=== PATIENT | female | born 1935 | race Caucasian/White ===

== ENCOUNTER 2018-05-08 17:43 | Inpatient (IN) | payer MEDICARE ==
[~2018-05-08] VITALS: Ht 162.6 cm; Wt 46.0 kg
[~2018-05-08 17:43] MED LIST: ASPI81CH; ASPI81CH PO; B-122500 MCG SL; CALCAVITD PO; CENTRUM SILVER1 EAC2 PO; CHOL10002 PO; Cleocin HCl300 MG PO; Cyclobenzaprine5 MG PO; DEXA4 PO; ERGO400 PO; FOLI400 PO; HYDR1TAB94 PO; IBUP400 PO; LEVO750 PO; MULVITMINE PO; Norco 5-325 Ta1 EACH PO; ONDA8 PO; Prilosec Otc20 MG PO; RANI150 PO; RXCLIN PO; SIMV10 PO; SIMV40; Zofran Odt4 MG PO
[2018-05-08 18:48] LABS: BASOPHILS ABSOLUTE AUTO 0.06 K/mm3 (0.00-0.23); BASOPHILS PERCENT AUTO 0 % (0-2); EOSINOPHILS ABSOLUTE AUTO 0.01 K/mm3 (0.00-0.68); EOSINOPHILS PERCENT AUTO 0 % (0-6); Hematocrit 43.5 % (33.0-51.0); Hemoglobin 14.7 g/dL (11.5-16.0); IMMATURE GRAN ABSOLUTE AUTO 0.27 K/mm3 (0.00-0.10); IMMATURE GRAN PERCENT AUTO 1 % (0-1); LYMPHOCYTES ABSOLUTE AUTO 1.48 K/mm3 (0.84-5.20); LYMPHOCYTES PERCENT AUTO 5 % (21-46); MONOCYTES ABSOLUTE AUTO 1.01 K/mm3 (0.16-1.47); MONOCYTES PERCENT AUTO 4 % (4-13); Mean Corpuscular HGB 30.8 pg (26.0-34.0); Mean Corpuscular HGB Conc 33.8 g/dL (31.5-36.5); Mean Corpuscular Volume 91 fL (80-100); Mean Platelet Volume 10.2 fL (9.1-12.4); NEUTROPHILS ABSOLUTE AUTO 25.67 K/mm3 (1.96-9.15); NEUTROPHILS PERCENT AUTO 90 % (41-73); Platelet Count 203 K/mm3 (150-400); RDW Coefficient Variation 13.9 % (11.7-14.2); RDW Standard Deviation 46.5 fL (35.1-46.3); Red Blood Cell Count 4.77 M/mm3 (3.80-5.20)
[2018-05-08 19:11] LABS: Alanine Aminotransfer (ALT/SGP 52 U/L (12-78); Albumin, Blood 2.9 g/dL (3.4-5.0); Albumin/Globulin Ratio 0.9 (0.8-1.8); Alk Phos 78 U/L (50-136); Anion Gap 8 mmol/L (6-16); Aspartate Aminotrans (AST/SGOT 33 U/L (12-37); Bilirubin, Total 1.7 mg/dL (0.1-1.0); Blood Urea Nitrogen 21 mg/dL (8-24); Bun/Creatinine Ratio 28.3 (12.0-20.0); CO2, Blood 27 mmol/L (21-32); Calcium, Blood 8.5 mg/dL (8.5-10.1); Chloride, Blood 97 mmol/L (98-108); Creatinine, Blood 0.74 mg/dL (0.40-1.00); Globulin, Blood 3.1 g/dL (2.2-4.0); Glomerular Filtration Rate >60 (60-); Glucose, Blood 82 mg/dL (70-99); Potassium, Blood 3.1 mmol/L (3.5-5.5); Sodium, Blood 132 mmol/L (136-145); Troponin I 0.036 ng/mL (0.000-0.040)
[2018-05-08] MEDS ORDERED: TARCEVA PO (20:56)
[2018-05-08] MEDS ORDERED: DEXA4 PO (20:56)
[2018-05-08 22:54] LABS: Source, Urine Catheter
[2018-05-08 23:00] LABS: Bilirubin, Urine Neg (Neg); Blood, Urine 3+ (Neg); Glucose Qualitative, Urine Neg (Neg); Ketones, Urine Neg (Neg); Leukocyte Esterase, Urine 3+ (Neg); Nitrite, Urine Neg (Neg); Protein, Urine 1+ (Neg); Specific Gravity, Urine 1.015 (1.003-1.022); Urobilinogen, Urine 2+ (Normal); pH, Urine 6.5 (5.0-8.0)
[2018-05-08 23:01] LABS: Appearance, Urine Hazy (Clear); Color, Urine Yellow (P-Yellow)
[2018-05-08 23:08] LABS: Bacteria Many /hpf; Red Blood Cells, Urine Rare /hpf (0-2); Squamous Epithelial Cells Not Seen /hpf (Few)
--- NOTE | 2018-05-09 04:00 | NUR ---
FLU SHOT WAS DECLINED BY THE PSTIENT AND HER FAMILY BECAUSE SHE IS IMMUNOCOMPROMISED AFTER HER CANCER AND TREATMENTS THIS YEAR. THE FAMILY SAID THE ONCIOLOGIST RECOMMENDS THEY DECLINE AT THIS TIME.
--- NOTE | 2018-05-09 05:06 | NUR ---
Spoke to hospitalist regarding pain coverage for this patient, and received orders per emar.
[2018-05-09 07:56] LABS: BASOPHILS ABSOLUTE AUTO 0.02 K/mm3 (0.00-0.23); BASOPHILS PERCENT AUTO 0 % (0-2); EOSINOPHILS ABSOLUTE AUTO 0.12 K/mm3 (0.00-0.68); EOSINOPHILS PERCENT AUTO 1 % (0-6); Hematocrit 37.4 % (33.0-51.0); Hemoglobin 12.5 g/dL (11.5-16.0); IMMATURE GRAN PERCENT AUTO 1 % (0-1); LYMPHOCYTES ABSOLUTE AUTO 1.09 K/mm3 (0.84-5.20); LYMPHOCYTES PERCENT AUTO 5 % (21-46); MONOCYTES ABSOLUTE AUTO 0.65 K/mm3 (0.16-1.47); MONOCYTES PERCENT AUTO 3 % (4-13); Mean Corpuscular HGB 30.2 pg (26.0-34.0); Mean Corpuscular HGB Conc 33.4 g/dL (31.5-36.5); Mean Corpuscular Volume 90 fL (80-100); NEUTROPHILS PERCENT AUTO 90 % (41-73); Platelet Count 165 K/mm3 (150-400); RDW Coefficient Variation 14.2 % (11.7-14.2); RDW Standard Deviation 46.7 fL (35.1-46.3); Red Blood Cell Count 4.14 M/mm3 (3.80-5.20); White Blood Cell Count 20.58 K/mm3 (4.00-11.30)
[2018-05-09 08:18] LABS: Anion Gap 8 mmol/L (6-16); Blood Urea Nitrogen 18 mg/dL (8-24); Bun/Creatinine Ratio 29.4 (12.0-20.0); CO2, Blood 24 mmol/L (21-32); Calcium, Blood 7.8 mg/dL (8.5-10.1); Chloride, Blood 105 mmol/L (98-108); Creatinine, Blood 0.61 mg/dL (0.40-1.00); Glomerular Filtration Rate >60 (60-); Glucose, Blood 86 mg/dL (70-99); Potassium, Blood 2.9 mmol/L (3.5-5.5); Sodium, Blood 137 mmol/L (136-145)
[2018-05-09 08:33] LABS: Adenovirus Not Detected (NOT DETECT); Bordetella pertussis Not Detected (NOT DETECT); Chlamydophila pneumoniae Not Detected (NOT DETECT); Coronavirus 229E Not Detected (NOT DETECT); Coronavirus HKU1 Not Detected (NOT DETECT); Coronavirus NL63 Not Detected (NOT DETECT); Coronavirus OC43 Not Detected (NOT DETECT); Human Metapneumovirus Not Detected (NOT DETECT); Human Rhinovirus/Enterovirus Not Detected (NOT DETECT); Influenza A Not Detected (NOT DETECT); Influenza A/2009-H1 Not Detected (NOT DETECT); Influenza A/H1 Not Detected (NOT DETECT); Influenza A/H3 Not Detected (NOT DETECT); Influenza B Not Detected (NOT DETECT); Mycoplasma pneumoniae Not Detected (NOT DETECT); Parainfluenza Virus 1 Not Detected (NOT DETECT); Parainfluenza Virus 2 Not Detected (NOT DETECT); Parainfluenza Virus 3 Not Detected (NOT DETECT); Parainfluenza Virus 4 Not Detected (NOT DETECT); Respiratory Syncytial Virus Not Detected (NOT DETECT)
--- NOTE | 2018-05-09 18:24 | NUR ---
SUMM- PT ALERT TO SELF AND FAMILY. Q[place]ALANGIN BUT FOLLOWS DIRECTIONS WITH LOUD CUING. TOLERATING GENERAL DIET WITH ASSIST. HAS GOTTEN UP TO CHAIR FOR MEALS. AMBULATED ONCE IN [place] WITH FAMILY THIS PM. POTASSIUM REPLACED PO ORDER FOR KCL 40MEQ, FOR KCL 2.9 THIS AM. PT'S FAMILY DIRECTS PT CARE AND INSISTS ON PERFORMING ADL'S. PT HAD L RIBCAGE PAIN ONCE FOR ABOUT 30 MIN, MEDICATED WITH FENT WITH RELIEF. RECEIVED POLST AND UPDATED CODE STATUS PER DR MERAZ.
[2018-05-10 04:58] LABS: BASOPHILS ABSOLUTE AUTO 0.02 K/mm3 (0.00-0.23); BASOPHILS PERCENT AUTO 0 % (0-2); EOSINOPHILS ABSOLUTE AUTO 0.22 K/mm3 (0.00-0.68); EOSINOPHILS PERCENT AUTO 2 % (0-6); Hemoglobin 11.2 g/dL (11.5-16.0); IMMATURE GRAN ABSOLUTE AUTO 0.05 K/mm3 (0.00-0.10); IMMATURE GRAN PERCENT AUTO 1 % (0-1); LYMPHOCYTES ABSOLUTE AUTO 0.89 K/mm3 (0.84-5.20); LYMPHOCYTES PERCENT AUTO 9 % (21-46); MONOCYTES ABSOLUTE AUTO 0.27 K/mm3 (0.16-1.47); MONOCYTES PERCENT AUTO 3 % (4-13); Mean Corpuscular HGB 30.1 pg (26.0-34.0); Mean Corpuscular HGB Conc 32.9 g/dL (31.5-36.5); Mean Corpuscular Volume 91 fL (80-100); Mean Platelet Volume 10.9 fL (9.1-12.4); NEUTROPHILS ABSOLUTE AUTO 8.22 K/mm3 (1.96-9.15); NEUTROPHILS PERCENT AUTO 85 % (41-73); Platelet Count 165 K/mm3 (150-400); RDW Coefficient Variation 14.6 % (11.7-14.2); RDW Standard Deviation 48.7 fL (35.1-46.3); Red Blood Cell Count 3.72 M/mm3 (3.80-5.20); White Blood Cell Count 9.67 K/mm3 (4.00-11.30)
[2018-05-10 05:24] LABS: Anion Gap 9 mmol/L (6-16); Blood Urea Nitrogen 13 mg/dL (8-24); Bun/Creatinine Ratio 22.1 (12.0-20.0); CO2, Blood 21 mmol/L (21-32); Calcium, Blood 7.7 mg/dL (8.5-10.1); Chloride, Blood 110 mmol/L (98-108); Creatinine, Blood 0.59 mg/dL (0.40-1.00); Glomerular Filtration Rate >60 (60-); Glucose, Blood 75 mg/dL (70-99); Potassium, Blood 3.2 mmol/L (3.5-5.5); Sodium, Blood 140 mmol/L (136-145)
--- NOTE | 2018-05-10 07:52 | NUR ---
Rn summary: Patient is alert and oriented to self and family. Did know birthday but thinks she is at home at times. Patient does ambulate with assist and coaching to BR. Voiding QS. Patient did rest well. Daughter at bedside all shift and she is very helpful. Pt was up this am and in chair at 0600 eating a pre-breakfast. Telemetry shows SR rate in 70's. Lungs sl course left lobes. Pt is [place]. Pt is back to bed at this time and is tired after being up. Call light in reach. Report to day RN given.
[2018-05-10] MEDS ORDERED: ACET325 (09:31)
[2018-05-10] MEDS ORDERED: ALBU90OI INH (09:32)
[2018-05-10] MEDS ORDERED: BENZ100A PO (09:32)
[2018-05-10] MEDS ORDERED: CEFP200 PO (09:33)
[2018-05-10] MEDS ORDERED: ONDA4ODT MM ×2 (09:34→09:35)
[2018-05-10] MEDS ORDERED: POTA10T PO (09:38)
[2018-05-10] MEDS ORDERED: AZIT500 PO (09:39)
--- NOTE | 2018-05-10 13:46 | NUR ---
D/C INSTRUCTIONS PROVIDED TO PT AND PT'S SON AND DAUGHTER. IV REMOVED. MEDS FAXED TO [facility]. PT D/C VIA WHEELCHAIR WITH [facility] AND PT'S SON AND PT'S DAUGHTER.
== END 2018-05-10 13:43 | disposition home or self-care (01) | DRG 871 ==
LOC: ER 17:43 → MEDS 23:32 → ENPENDDIS 05-10 09:30 → MEDS 05-10 13:43
PROVIDERS: Emergency Medicine; Family Medicine; Nurse Practitioner Acute Care; Physician Assistant; ADMIT Internal Medicine
DX: A40.3 Sepsis due to Streptococcus pneumoniae (principal); J18.9 Pneumonia, unspecified organism; G92 Toxic encephalopathy; N39.0 Urinary tract infection, site not specified; C34.11 Malignant neoplasm of upper lobe, right bronchus or lung; E87.1 Hypo-osmolality and hyponatremia; F03.90 Unspecified dementia, unspecified severity, without behavioral disturbance, psychotic disturbance, mood disturbance, and anxiety; E78.5 Hyperlipidemia, unspecified; E87.6 Hypokalemia; K21.9 Gastro-esophageal reflux disease without esophagitis; Z66 Do not resuscitate; E87.8 Other disorders of electrolyte and fluid balance, not elsewhere classified; F17.210 Nicotine dependence, cigarettes, uncomplicated; Z88.5 Allergy status to narcotic agent; Z88.0 Allergy status to penicillin; Z92.21 Personal history of antineoplastic chemotherapy; Z92.3 Personal history of irradiation
CPT/HCPCS: 36415; 71046; 80048; 80053; 81001; 83605; 83735; 84145; 84484; 85025; 87077; 87086; 87186; 87449; 87486; 87581; 87633; 87798; 90686; 93005; 93010; 96365; 96367; 99285-25; J0456; J0696; J1650; J3010; J7030; J7050

== ENCOUNTER 2018-05-13 12:04 | Inpatient (IN) | payer MEDICARE ==
[~2018-05-13] VITALS: Ht 162.6 cm; Wt 52.7 kg
[~2018-05-13 12:04] MED LIST changes: +ACET325; +ALBU90OI INH; +AZIT500 PO; +BENZ100A PO; +CEFP200 PO; +ONDA4ODT MM; +POTA10T PO; +TARCEVA PO
[2018-05-13 13:02] LABS: BASOPHILS ABSOLUTE AUTO 0.04 K/mm3 (0.00-0.23); BASOPHILS PERCENT AUTO 1 % (0-2); EOSINOPHILS ABSOLUTE AUTO 0.04 K/mm3 (0.00-0.68); EOSINOPHILS PERCENT AUTO 1 % (0-6); Hematocrit 50.2 % (33.0-51.0); Hemoglobin 16.7 g/dL (11.5-16.0); IMMATURE GRAN ABSOLUTE AUTO 0.07 K/mm3 (0.00-0.10); IMMATURE GRAN PERCENT AUTO 1 % (0-1); LYMPHOCYTES ABSOLUTE AUTO 0.58 K/mm3 (0.84-5.20); LYMPHOCYTES PERCENT AUTO 7 % (21-46); MONOCYTES ABSOLUTE AUTO 0.21 K/mm3 (0.16-1.47); MONOCYTES PERCENT AUTO 3 % (4-13); Mean Corpuscular HGB 29.9 pg (26.0-34.0); Mean Corpuscular HGB Conc 33.3 g/dL (31.5-36.5); Mean Corpuscular Volume 90 fL (80-100); Mean Platelet Volume 10.5 fL (9.1-12.4); NEUTROPHILS ABSOLUTE AUTO 7.33 K/mm3 (1.96-9.15); NEUTROPHILS PERCENT AUTO 89 % (41-73); Platelet Count 207 K/mm3 (150-400); RDW Coefficient Variation 13.8 % (11.7-14.2); Red Blood Cell Count 5.58 M/mm3 (3.80-5.20); White Blood Cell Count 8.27 K/mm3 (4.00-11.30)
[2018-05-13 13:26] LABS: Alanine Aminotransfer (ALT/SGP 54 U/L (12-78); Albumin, Blood 3.4 g/dL (3.4-5.0); Albumin/Globulin Ratio 0.7 (0.8-1.8); Alk Phos 112 U/L (50-136); Anion Gap 13 mmol/L (6-16); Aspartate Aminotrans (AST/SGOT 46 U/L (12-37); Bilirubin, Total 2.1 mg/dL (0.1-1.0); Blood Urea Nitrogen 11 mg/dL (8-24); Bun/Creatinine Ratio 14.8 (12.0-20.0); CO2, Blood 25 mmol/L (21-32); Calcium, Blood 9.2 mg/dL (8.5-10.1); Chloride, Blood 91 mmol/L (98-108); Creatinine, Blood 0.74 mg/dL (0.40-1.00); Globulin, Blood 4.6 g/dL (2.2-4.0); Glomerular Filtration Rate >60 (60-); Glucose, Blood 59 mg/dL (70-99); Potassium, Blood 3.1 mmol/L (3.5-5.5); Sodium, Blood 129 mmol/L (136-145); Troponin I 0.041 ng/mL (0.000-0.040)
[2018-05-13 19:08] LABS: International Normalized Ratio 1.05; Prothrombin Time Results 11.1 Sec (9.7-11.5)
--- NOTE | 2018-05-13 19:26 | NUR ---
Initial Visit: Palliative Care Consult for goals of care. Pt resting in bed and appears comfortable. She is pleasantly confused and A&Ox2. Pt denies pain and dyspnea at this time. Family is at bedside including Pt's daughter in law Maicol (JOAN), and Pt's sons. Engaged in therapeutic conversation about goals of care. Maicol reports the Pt does not have any religous beliefs. Pt lives at home with Maicol and is the primary caregiver. Listened as Maicol expressed concerns about the level of care the Pt requires. Maicol reports that she will need assistance and is interested in caregivers coming into the home. Maicol also reports that discussion was made with Dr Hill about hospice and she is leaning towards this option. Maicol states that she would like to have a discussion with all the Pt's sons regarding this option and would like them to help her make the decision. For now Maicol would like Pt treated and stabilized. She would like Pt's code status to remain as the POLST states. POLST states CPR, Limited Treatment and No Aritificial Nutrition by Tube. Spoke with Pt's ED nurse Popeye and she is agreeable with plan. Popeye reports no concerns at this time. Plan: Placed social service consult for assistance with caregivers to come to home. Will remain available for therapeutic visits.
[2018-05-13 23:03] LABS: Adenovirus Not Detected (NOT DETECT); Coronavirus 229E Not Detected (NOT DETECT); Coronavirus HKU1 Not Detected (NOT DETECT); Coronavirus NL63 Not Detected (NOT DETECT); Coronavirus OC43 Not Detected (NOT DETECT); Human Metapneumovirus Not Detected (NOT DETECT); Human Rhinovirus/Enterovirus Not Detected (NOT DETECT); Influenza A Detected (NOT DETECT); Influenza A/2009-H1 Not Detected (NOT DETECT); Influenza A/H1 Not Detected (NOT DETECT); Influenza A/H3 Detected (NOT DETECT); Influenza B Not Detected (NOT DETECT); Parainfluenza Virus 1 Not Detected (NOT DETECT); Parainfluenza Virus 2 Not Detected (NOT DETECT); Parainfluenza Virus 3 Not Detected (NOT DETECT); Parainfluenza Virus 4 Not Detected (NOT DETECT)
[2018-05-13 23:04] LABS: Bordetella pertussis Not Detected (NOT DETECT); Chlamydophila pneumoniae Not Detected (NOT DETECT); Mycoplasma pneumoniae Not Detected (NOT DETECT); Respiratory Syncytial Virus Not Detected (NOT DETECT)
[2018-05-14 01:11] LABS: BASOPHILS ABSOLUTE AUTO 0.02 K/mm3 (0.00-0.23); BASOPHILS PERCENT AUTO 0 % (0-2); EOSINOPHILS ABSOLUTE AUTO 0.07 K/mm3 (0.00-0.68); EOSINOPHILS PERCENT AUTO 1 % (0-6); Hemoglobin 13.3 g/dL (11.5-16.0); IMMATURE GRAN ABSOLUTE AUTO 0.06 K/mm3 (0.00-0.10); IMMATURE GRAN PERCENT AUTO 1 % (0-1); LYMPHOCYTES ABSOLUTE AUTO 0.67 K/mm3 (0.84-5.20); LYMPHOCYTES PERCENT AUTO 11 % (21-46); MONOCYTES ABSOLUTE AUTO 0.24 K/mm3 (0.16-1.47); MONOCYTES PERCENT AUTO 4 % (4-13); Mean Corpuscular HGB 30.4 pg (26.0-34.0); Mean Corpuscular HGB Conc 33.3 g/dL (31.5-36.5); Mean Corpuscular Volume 92 fL (80-100); Mean Platelet Volume 10.4 fL (9.1-12.4); NEUTROPHILS ABSOLUTE AUTO 5.17 K/mm3 (1.96-9.15); NEUTROPHILS PERCENT AUTO 83 % (41-73); Platelet Count 152 K/mm3 (150-400); RDW Coefficient Variation 13.7 % (11.7-14.2); RDW Standard Deviation 46.7 fL (35.1-46.3); Red Blood Cell Count 4.37 M/mm3 (3.80-5.20); White Blood Cell Count 6.23 K/mm3 (4.00-11.30)
[2018-05-14 01:48] LABS: Alanine Aminotransfer (ALT/SGP 36 U/L (12-78); Albumin, Blood 2.3 g/dL (3.4-5.0); Albumin/Globulin Ratio 0.7 (0.8-1.8); Alk Phos 72 U/L (50-136); Anion Gap 9 mmol/L (6-16); Aspartate Aminotrans (AST/SGOT 39 U/L (12-37); Bilirubin, Total 1.1 mg/dL (0.1-1.0); Blood Urea Nitrogen 11 mg/dL (8-24); Bun/Creatinine Ratio 19.1 (12.0-20.0); CO2, Blood 25 mmol/L (21-32); Chloride, Blood 100 mmol/L (98-108); Creatinine, Blood 0.58 mg/dL (0.40-1.00); Globulin, Blood 3.1 g/dL (2.2-4.0); Glomerular Filtration Rate >60 (60-); Glucose, Blood 68 mg/dL (70-99); Potassium, Blood 3.7 mmol/L (3.5-5.5); Sodium, Blood 134 mmol/L (136-145)
[2018-05-14 01:59] LABS: Total Protein, Blood 5.4 g/dL (6.4-8.2)
--- NOTE | 2018-05-14 06:21 | NUR ---
SHIFT SUMMARY PT WAS A NEW ADMIT DURING THE NIGHT, ARRIVING ON THE FLOOR AT 1947. SHE WAS ADMITTED FOR SEPSIS. THE PT WAS FOUND TO BE POSITIVE FOR INFLUENZA A DURING THE NIGHT, AND PLACED IN DROPLET/CONTACT PRECAUTIONS. THE PT DID NOT REPORT ANY PAIN, NAUSEA OR SOB, SIMPLY REPEATING "I'M COLD". SHE WAS PLACED ON 2L OF O2 VIA NC, SHE WAS DESATTING TO THE 80S ON ROOM AIR WHILE IN THE ER. PT'S DAUGHTER STAYED IN THE ROOM THROUGH THE NIGHT. VITAL SIGNS REMAINED STABLE. NO OTHER ACUTE CHANGES IN PT CONDITION NOTED. WILL CONTINUE TO MONITOR AND TREAT.
--- NOTE | 2018-05-14 16:36 | NUR ---
SHIFT SUMMARY- AXO TO SELF/FAMILY. DENIES PAIN. DENIES N/V. DENIES SOB. RESP E/U ON 2L O2 NC. NSR AT 71 PER PCU CRTS. FAMILY AT BEDSIDE AND HELPING WITH PT CARE. BEDREST AT THIS TIME. TURNS Q2H. NO OTHER SIGNIFICANT CHANGES THIS SHIFT.
[2018-05-15 05:23] LABS: BASOPHILS ABSOLUTE AUTO 0.02 K/mm3 (0.00-0.23); BASOPHILS PERCENT AUTO 1 % (0-2); EOSINOPHILS PERCENT AUTO 5 % (0-6); Hematocrit 36.9 % (33.0-51.0); Hemoglobin 12.3 g/dL (11.5-16.0); IMMATURE GRAN ABSOLUTE AUTO 0.04 K/mm3 (0.00-0.10); IMMATURE GRAN PERCENT AUTO 1 % (0-1); LYMPHOCYTES ABSOLUTE AUTO 0.77 K/mm3 (0.84-5.20); LYMPHOCYTES PERCENT AUTO 18 % (21-46); MONOCYTES ABSOLUTE AUTO 0.17 K/mm3 (0.16-1.47); MONOCYTES PERCENT AUTO 4 % (4-13); Mean Corpuscular HGB 29.9 pg (26.0-34.0); Mean Corpuscular HGB Conc 33.3 g/dL (31.5-36.5); Mean Corpuscular Volume 90 fL (80-100); Mean Platelet Volume 10.7 fL (9.1-12.4); NEUTROPHILS ABSOLUTE AUTO 3.08 K/mm3 (1.96-9.15); NEUTROPHILS PERCENT AUTO 72 % (41-73); Platelet Count 174 K/mm3 (150-400); RDW Coefficient Variation 13.7 % (11.7-14.2); RDW Standard Deviation 44.9 fL (35.1-46.3); Red Blood Cell Count 4.12 M/mm3 (3.80-5.20); White Blood Cell Count 4.28 K/mm3 (4.00-11.30)
[2018-05-15 05:48] LABS: Anion Gap 9 mmol/L (6-16); Blood Urea Nitrogen 9 mg/dL (8-24); Bun/Creatinine Ratio 16.6 (12.0-20.0); CO2, Blood 25 mmol/L (21-32); Calcium, Blood 7.5 mg/dL (8.5-10.1); Chloride, Blood 99 mmol/L (98-108); Creatinine, Blood 0.54 mg/dL (0.40-1.00); Glomerular Filtration Rate >60 (60-); Glucose, Blood 68 mg/dL (70-99); Sodium, Blood 133 mmol/L (136-145); Troponin I 0.055 ng/mL (0.000-0.040)
--- NOTE | 2018-05-15 05:50 | NUR ---
NOC SHIFT SUMMARY PT HAS DIMENTIA AND IS PLEASANT AND COOPERATIVE WITH CARE. FAMILY ARE IN ROOM WELL AND ARE ALSO HELPFULL WITH CARE. NO ACUTE CHANGES NOTED THIS NIGHT. PT APPEARS IN NO ACUTE DISTRESS. VS HAVE BEEN STABLE. WILL CONTINUE TO MONITOR.
--- NOTE | 2018-05-15 15:15 | NUR ---
FOLLOW UP PAL CARE VISIT. PT IN COMPLETELY DARKENED ROOM WITH APPROX 6-10 FAMILY MEMBERS IN HER ROOM AND AT THE DOORWAY. PT IN AND OUT OF SLEEP. SHE IS ABLE TO WAKE FOR BRIEF PERIODS. SHE IS VERY APACHE. WHEN ASSESSED SHE STATES SHE IS NOT HURTING. DIL/POA, JO DOESN'T FEEL PT CAN TELL SHE IS IN PAIN DUE TO DEMENTIA. JO EDUCATED ON MULTPLE NONVERBAL INDICATORS OF PAIN TO REPORT IF NOTED BY FAMILY IN THE ROOM. PT WEARING O2 AND APPEARS SLIGHTLY DYSPNIC AT REST AND SLIGHTLY ANXIOUS WHEN AWAKE. SPENT TIME CONFIRMING CHOSEN PLAN OF CARE WITH JO. AT THIS TIME THEY WANT PT TO BE A FULL CODE. JO FEELS PT IS IMPROVING AND SHE IS HOPEFUL THIS WILL CONTINUE. DISCUSSED CPR SPECIFICALLY AND THAT IT MAY SUCCESSFULLY RESTART HEART BUT WILL NOT TREAT PT'S OTHER MULIPLE COMORBIDITIES. JO VERBALIZED UNDERSTANDING. SHE IS SATISFIED WITH THE CURRENT ORDERS AND PLAN OF CARE AT THIS TIME. SHE CARED FOR PT'S THRU EOL CARE AND VERBALIZED PLAN TO SEEK OUT HOSPICE IF PT'S STATUS CHANGED AND SHE DECLINED OR DID NOT CONTINUE TO IMPROVE. REVIEWED VISIT WITH PT'S RN.
--- NOTE | 2018-05-15 19:05 | NUR ---
SHIFT SUMMARY PALLIATIVE CARE ASSESSED THE PATIENTA ND THE FAMILY. WILL CHECK FOR ANY CHANGES. PATIENT HAD IV POTASSIUM REPLACEMENT THERAPY.
[2018-05-15 19:16] LABS: Vancomycin, Trough 3.4 ug/mL (5.0-10.0)
[2018-05-16 05:07] LABS: BASOPHILS ABSOLUTE AUTO 0.02 K/mm3 (0.00-0.23); BASOPHILS PERCENT AUTO 1 % (0-2); EOSINOPHILS ABSOLUTE AUTO 0.31 K/mm3 (0.00-0.68); EOSINOPHILS PERCENT AUTO 7 % (0-6); Hematocrit 34.9 % (33.0-51.0); Hemoglobin 11.6 g/dL (11.5-16.0); IMMATURE GRAN ABSOLUTE AUTO 0.02 K/mm3 (0.00-0.10); IMMATURE GRAN PERCENT AUTO 1 % (0-1); LYMPHOCYTES ABSOLUTE AUTO 0.85 K/mm3 (0.84-5.20); LYMPHOCYTES PERCENT AUTO 20 % (21-46); MONOCYTES ABSOLUTE AUTO 0.18 K/mm3 (0.16-1.47); MONOCYTES PERCENT AUTO 4 % (4-13); Mean Corpuscular HGB 30.4 pg (26.0-34.0); Mean Corpuscular HGB Conc 33.2 g/dL (31.5-36.5); Mean Corpuscular Volume 91 fL (80-100); Mean Platelet Volume 10.4 fL (9.1-12.4); NEUTROPHILS ABSOLUTE AUTO 2.93 K/mm3 (1.96-9.15); NEUTROPHILS PERCENT AUTO 68 % (41-73); Platelet Count 176 K/mm3 (150-400); RDW Coefficient Variation 13.6 % (11.7-14.2); Red Blood Cell Count 3.82 M/mm3 (3.80-5.20); White Blood Cell Count 4.31 K/mm3 (4.00-11.30)
--- NOTE | 2018-05-16 05:55 | NUR ---
NOC SHIFT SUMMARY PT PLEASANT AND COOPERATIVE WITH CARE. GIVEN IV ABX THIS NIGHT. THE RASH ON AND AROUND HER JOSÉ AREA APPEARS TO BE SLIGHTLY IMPROVED. NO ACUTE CHANGES NOTED THIS NIGHT. WILL CONTINUE TO MONITOR.
[2018-05-16 06:00] LABS: Anion Gap 9 mmol/L (6-16); Blood Urea Nitrogen 8 mg/dL (8-24); Bun/Creatinine Ratio 15.8 (12.0-20.0); CO2, Blood 25 mmol/L (21-32); Calcium, Blood 7.4 mg/dL (8.5-10.1); Chloride, Blood 100 mmol/L (98-108); Creatinine, Blood 0.51 mg/dL (0.40-1.00); Glomerular Filtration Rate >60 (60-); Glucose, Blood 82 mg/dL (70-99); Potassium, Blood 3.1 mmol/L (3.5-5.5); Sodium, Blood 134 mmol/L (136-145)
--- NOTE | 2018-05-16 16:34 | NUR ---
SHIFT SUMMARY PT ADMITTED FOR SEPSIS SECONDARY TO PNEUMONIA/INFLUENZA A AND UTI. PT IS ON DROPLET PRECAUTIONS FOR INFLUENZA A. HX OF LUNG CANCER, SKIN CANCER, COPD, HTN, RECURRENT UTI'S, DEMENTIA. ONCOLOGY RECOMMENDS HOLDING TARCEVA AND DECADRON WHILE HOSPITALIZED. PT'S POTASSIUM LEVEL WAS 3.1 TODAY. PT DID NOT TOLERATE IV POTASSIUM WELL, DESCRIBED BURNING PAIN WHEN ATTEMPTED ADMIN. HOSPITALIST ORDERED ORAL POTASSIUM TO REPLACE. PT IS BEING MONITORED BY TELEMETRY AND WAS 84 BPM IN NSR. PT HAS NOT BEEN EATING WELL IN HOSPITAL, HOWEVER I WAS INFORMED THAT THE FAMILY SNUCK HER IN A "BIG MAC" HAMBURGER THAT SHE ATE WELL. FAMILY ASSISTS WITH THIS PT'S CARE AND IS USUALLY PRESENT IN THE ROOM. LR IS RUNNING IV 100 ML/HR ORDERED.
--- NOTE | 2018-05-16 18:00 | NUR ---
PT STATUS I HAVE JUST BEEN MADE AWARE BY [facility] STAFF THAT THE PT'S SKIN IS IRRITATED AROUND THE URETHRA AND BECOMING INFLAMED, ACCORDING TO THEM. I PLAN TO ASSESS IT MYSELF WITH THE NEXT BRIEF CHANGE. IF THIS DOES NOT OCCUR WITHIN THE NEXT 30 MINUTES (SHIFT CHANGE) I WILL PASS THIS INFORMATION ON TO THE ONCOMING RN, ASKING THE NURSE TO ASSESS THIS SITUATION WITH THEIR OWN NURSING JUDGEMENT. THE FAMILY IS NOT CONCERNED AND REPORTED TO ME THEIR OPINION THAT HER SKIN IS IMPROVED IN THE PERINEAL AREA WITH THE NEW CREAM THEY HAVE PROVIDED. I HAVE INFORMED THE [facility] TO PASS ALONG THIS INFORMATION TO THE NIGHT SOUND INSTALLATION WORKER WELL.
[2018-05-17 05:25] LABS: BASOPHILS ABSOLUTE AUTO 0.03 K/mm3 (0.00-0.23); BASOPHILS PERCENT AUTO 1 % (0-2); EOSINOPHILS ABSOLUTE AUTO 0.27 K/mm3 (0.00-0.68); EOSINOPHILS PERCENT AUTO 6 % (0-6); Hematocrit 34.3 % (33.0-51.0); Hemoglobin 11.6 g/dL (11.5-16.0); Mean Corpuscular HGB 30.1 pg (26.0-34.0); Mean Corpuscular HGB Conc 33.8 g/dL (31.5-36.5); Mean Corpuscular Volume 89 fL (80-100); Mean Platelet Volume 10.7 fL (9.1-12.4); Platelet Count 183 K/mm3 (150-400); RDW Coefficient Variation 13.4 % (11.7-14.2); RDW Standard Deviation 43.8 fL (35.1-46.3); Red Blood Cell Count 3.85 M/mm3 (3.80-5.20); White Blood Cell Count 4.46 K/mm3 (4.00-11.30)
[2018-05-17 05:29] LABS: IMMATURE GRAN ABSOLUTE AUTO 0.02 K/mm3 (0.00-0.10); IMMATURE GRAN PERCENT AUTO 0 % (0-1); LYMPHOCYTES ABSOLUTE AUTO 1.04 K/mm3 (0.84-5.20); LYMPHOCYTES PERCENT AUTO 23 % (21-46); MONOCYTES ABSOLUTE AUTO 0.22 K/mm3 (0.16-1.47); MONOCYTES PERCENT AUTO 5 % (4-13); NEUTROPHILS ABSOLUTE AUTO 2.88 K/mm3 (1.96-9.15); NEUTROPHILS PERCENT AUTO 65 % (41-73)
[2018-05-17 05:52] LABS: Anion Gap 7 mmol/L (6-16); Blood Urea Nitrogen 5 mg/dL (8-24); Bun/Creatinine Ratio 9.7 (12.0-20.0); CO2, Blood 26 mmol/L (21-32); Calcium, Blood 7.7 mg/dL (8.5-10.1); Chloride, Blood 100 mmol/L (98-108); Creatinine, Blood 0.52 mg/dL (0.40-1.00); Glomerular Filtration Rate >60 (60-); Glucose, Blood 70 mg/dL (70-99); Potassium, Blood 3.3 mmol/L (3.5-5.5); Sodium, Blood 133 mmol/L (136-145)
--- NOTE | 2018-05-17 19:30 | NUR ---
Assumed care of pt at 1930 after recieving report from off-going nurse.
--- NOTE | 2018-05-17 20:09 | NUR ---
SUMM- PT A/O TO SELF AND FAMILY. UP TO CHAIR FOR X2 TODAY WITH MAX 1 PIVOT TX WITH GAIT BELT, ABLE TO BEAR WEITHG, WEAK AND UNSTEADY, UNSURE OF STEP. INCONT AT TIMES AND CONTINENT OCCASIONAL. CALAZYME TO EXCORIATED GROIN. PTS FAMILY INVOLVED IN CARE AND ASSIST IN MEALS AND ACTIVITYS. DENIES PAIN. LUNGS CLEAR, DIM BASES. CONT WITH LR AT 100ML HR. REPORT TO KATELYNN ACKERMAN.
[2018-05-18 05:43] LABS: Source, Urine Catheter
[2018-05-18 05:44] LABS: Bilirubin, Urine Neg (Neg); Blood, Urine Neg (Neg); Glucose Qualitative, Urine Neg (Neg); Ketones, Urine Neg (Neg); Leukocyte Esterase, Urine 1+ (Neg); Nitrite, Urine Neg (Neg); Protein, Urine Neg (Neg); Urobilinogen, Urine NORM (Normal)
[2018-05-18 05:52] LABS: Appearance, Urine Clear (Clear); Bacteria Not Seen /hpf; Color, Urine Yellow (P-Yellow); Red Blood Cells, Urine Not Seen /hpf (0-2); Squamous Epithelial Cells Not Seen /hpf (Few); White Blood Cells, Urine 0-2 /hpf (0-5)
--- NOTE | 2018-05-18 06:22 | NUR ---
Shift summary: Pt very anxious about cares during the night. Pt very anxious about getting stuck with needles. Pt incontinent of urine several times during night but we were able to get urine sample which came back clean. Teletry on- sinus rhythm during the night. Pt remains on droplet precautions. Pt turned q 2 hours during the night. Sacral area excoriated. Calazine lotion applied.
[2018-05-18 07:34] LABS: Vancomycin, Trough 16.4 ug/mL (5.0-10.0)
[2018-05-18 07:37] LABS: Anion Gap 9 mmol/L (6-16); Blood Urea Nitrogen 5 mg/dL (8-24); Bun/Creatinine Ratio 9.2 (12.0-20.0); CO2, Blood 26 mmol/L (21-32); Calcium, Blood 7.8 mg/dL (8.5-10.1); Chloride, Blood 98 mmol/L (98-108); Creatinine, Blood 0.54 mg/dL (0.40-1.00); Glomerular Filtration Rate >60 (60-); Glucose, Blood 70 mg/dL (70-99); Potassium, Blood 3.2 mmol/L (3.5-5.5); Sodium, Blood 133 mmol/L (136-145)
--- NOTE | 2018-05-18 19:30 | NUR ---
Assumed care of pt at 1930 after recieving report from off-going nurse.
--- NOTE | 2018-05-18 19:48 | NUR ---
SHIFT SUMMARY PT HAS NOT HAD MUCH OF AN APPETITE THIS SHIFT. FAMILY BROUGHT PT FISH AND CHIPS IN TODAY AND PT WAS EATING IT. PT CONFUSED AND FORGETFUL THAT SHE HAS/HASN'T EATEN. PT UP WITH PHYSICAL THERAPY THIS SHIFT AND AMBULATED IN [place]. FAMILY HAD PT SITTING UP IN CHAIR FOR 40 MIN THIS EVENING PER FAMILY. PT VERY SLEEPY THROUGH OUT THE SHIFT. IVF STOPPED AND PLANS FOR DISCHARGE TOMORROW. FAMILY CONCERNED OF DEHYDRATION. THIS RN EXPLAINED TO FAMILY THAT STAFF WOULD ENCOURAGE PT TO DRINK FLUIDS AND INFORMED NIGHT RN WHAT PT'S FAVORITE THINGS WERE TO DRINK. NO ACUTE CHANGES THIS SHIFT. CALL LIGHT IN REACH. REPORT GIVEN TO KATELYNN RN.
--- NOTE | 2018-05-19 03:48 | NUR ---
shift summary. Pt did well overnight. Pt has been sleeping most of shift. Pt incontinent of urine / changed x 3 during the night. Pt has been more cooperative with cares during night. Pt repostioned q 2 hours during night. Sacral and barbara area excoriated. pt started on nystatin.
[2018-05-19 04:52] LABS: Hematocrit 37.6 % (33.0-51.0); Hemoglobin 12.7 g/dL (11.5-16.0); Mean Corpuscular HGB 30.3 pg (26.0-34.0); Mean Corpuscular HGB Conc 33.8 g/dL (31.5-36.5); Mean Corpuscular Volume 90 fL (80-100); Mean Platelet Volume 10.1 fL (9.1-12.4); Platelet Count 226 K/mm3 (150-400); RDW Coefficient Variation 13.2 % (11.7-14.2); RDW Standard Deviation 43.3 fL (35.1-46.3); Red Blood Cell Count 4.19 M/mm3 (3.80-5.20); White Blood Cell Count 6.33 K/mm3 (4.00-11.30)
[2018-05-19 05:16] LABS: Alanine Aminotransfer (ALT/SGP 22 U/L (12-78); Albumin, Blood 2.2 g/dL (3.4-5.0); Albumin/Globulin Ratio 0.7 (0.8-1.8); Alk Phos 64 U/L (50-136); Anion Gap 9 mmol/L (6-16); Aspartate Aminotrans (AST/SGOT 22 U/L (12-37); Bilirubin, Total 0.6 mg/dL (0.1-1.0); Blood Urea Nitrogen 7 mg/dL (8-24); Bun/Creatinine Ratio 12.1 (12.0-20.0); CO2, Blood 27 mmol/L (21-32); Calcium, Blood 8.5 mg/dL (8.5-10.1); Chloride, Blood 96 mmol/L (98-108); Creatinine, Blood 0.58 mg/dL (0.40-1.00); Globulin, Blood 3.3 g/dL (2.2-4.0); Glomerular Filtration Rate >60 (60-); Glucose, Blood 78 mg/dL (70-99); Potassium, Blood 3.5 mmol/L (3.5-5.5); Sodium, Blood 132 mmol/L (136-145); Total Protein, Blood 5.5 g/dL (6.4-8.2)
--- NOTE | 2018-05-19 10:54 | NUR ---
PATIENT REFUSING MEDICATIONS THIS MORNING. UNABLE TO REORIENT. DAUGHTER AT THE BEDSIDE.
--- NOTE | 2018-05-19 20:12 | NUR ---
SHIFT SUMMARY PATIENT A&O TO SELF AND FAMILY. HX DEMENTIA. DENIES PAIN OR SOB THIS SHIFT. REFUSING ALL PO MEDICATIONS. HAS NOT BEEN EATING OR DRINKING ALL SHIFT. DR. MALDONADOTRATE AWARE. DIETARY CONSULT PLACED. FAMILY AT THE BEDSIDE. UP IN CHAIR FOR BREAKFAST AND DINNER. REPOSITIONED Q2 HOURS. NO ACUTE CHANGES THIS SHIFT.
[2018-05-20 04:54] LABS: BASOPHILS ABSOLUTE AUTO 0.02 K/mm3 (0.00-0.23); BASOPHILS PERCENT AUTO 0 % (0-2); EOSINOPHILS ABSOLUTE AUTO 0.28 K/mm3 (0.00-0.68); EOSINOPHILS PERCENT AUTO 5 % (0-6); Hematocrit 34.2 % (33.0-51.0); Hemoglobin 11.6 g/dL (11.5-16.0); IMMATURE GRAN ABSOLUTE AUTO 0.07 K/mm3 (0.00-0.10); IMMATURE GRAN PERCENT AUTO 1 % (0-1); LYMPHOCYTES PERCENT AUTO 23 % (21-46); MONOCYTES ABSOLUTE AUTO 0.49 K/mm3 (0.16-1.47); MONOCYTES PERCENT AUTO 10 % (4-13); Mean Corpuscular HGB 29.8 pg (26.0-34.0); Mean Corpuscular HGB Conc 33.9 g/dL (31.5-36.5); Mean Corpuscular Volume 88 fL (80-100); Mean Platelet Volume 10.3 fL (9.1-12.4); NEUTROPHILS ABSOLUTE AUTO 3.11 K/mm3 (1.96-9.15); NEUTROPHILS PERCENT AUTO 60 % (41-73); Platelet Count 243 K/mm3 (150-400); RDW Coefficient Variation 13.2 % (11.7-14.2); RDW Standard Deviation 42.3 fL (35.1-46.3); Red Blood Cell Count 3.89 M/mm3 (3.80-5.20); White Blood Cell Count 5.17 K/mm3 (4.00-11.30)
[2018-05-20 05:15] LABS: Alanine Aminotransfer (ALT/SGP 21 U/L (12-78); Albumin, Blood 2.1 g/dL (3.4-5.0); Albumin/Globulin Ratio 0.6 (0.8-1.8); Alk Phos 62 U/L (50-136); Anion Gap 8 mmol/L (6-16); Aspartate Aminotrans (AST/SGOT 22 U/L (12-37); Bilirubin, Total 0.5 mg/dL (0.1-1.0); Blood Urea Nitrogen 11 mg/dL (8-24); Bun/Creatinine Ratio 22.8 (12.0-20.0); CO2, Blood 26 mmol/L (21-32); Calcium, Blood 8.1 mg/dL (8.5-10.1); Chloride, Blood 97 mmol/L (98-108); Creatinine, Blood 0.48 mg/dL (0.40-1.00); Globulin, Blood 3.3 g/dL (2.2-4.0); Glomerular Filtration Rate >60 (60-); Glucose, Blood 119 mg/dL (70-99); Magnesium, Blood 1.8 mg/dL (1.6-2.4); Potassium, Blood 3.6 mmol/L (3.5-5.5); Sodium, Blood 131 mmol/L (136-145); Total Protein, Blood 5.4 g/dL (6.4-8.2)
--- NOTE | 2018-05-20 06:42 | NUR ---
SHIFT SUMMARY PT ORIENTED TO SELF AND FAMILY. INCONT OF URINE BARRIER CREAM APPLIED TO JOSÉ AREA. REFUSED SCD'S. NO STOOL SAMPLE. SHE SLEPT THROUGH NIGHT. BED ALARM IN USE.
--- NOTE | 2018-05-20 19:03 | NUR ---
shift summary PATIENT IS GETTING UP TO CHAIR FOR MEALS. ENCOURAGING BETTER PO INTAKE. FAMILY AT BEDSIDE ENCOURAGING PATIENT TO EAT. 1 PERSON ASSIST TO AND FROM CHAIR. ATTENDS CHANGED PRN, [place]STAT[place] AND CREAM APPLIED. ENCOURAGING KEEPING ATTENDS DRY AND KEEPING BOTTOM ELEVATED. ENCOURAGING USING A BEDPAN OR BSC IF PATIENT HAS FEELING TO URINATE.
[2018-05-21 05:29] LABS: BASOPHILS ABSOLUTE AUTO 0.02 K/mm3 (0.00-0.23); BASOPHILS PERCENT AUTO 0 % (0-2); EOSINOPHILS ABSOLUTE AUTO 0.03 K/mm3 (0.00-0.68); EOSINOPHILS PERCENT AUTO 1 % (0-6); Hematocrit 33.3 % (33.0-51.0); Hemoglobin 11.2 g/dL (11.5-16.0); IMMATURE GRAN ABSOLUTE AUTO 0.08 K/mm3 (0.00-0.10); IMMATURE GRAN PERCENT AUTO 2 % (0-1); LYMPHOCYTES ABSOLUTE AUTO 1.27 K/mm3 (0.84-5.20); LYMPHOCYTES PERCENT AUTO 24 % (21-46); MONOCYTES ABSOLUTE AUTO 0.74 K/mm3 (0.16-1.47); MONOCYTES PERCENT AUTO 14 % (4-13); Mean Corpuscular HGB 29.6 pg (26.0-34.0); Mean Corpuscular HGB Conc 33.6 g/dL (31.5-36.5); Mean Corpuscular Volume 88 fL (80-100); Mean Platelet Volume 10.5 fL (9.1-12.4); NEUTROPHILS ABSOLUTE AUTO 3.14 K/mm3 (1.96-9.15); NEUTROPHILS PERCENT AUTO 59 % (41-73); Platelet Count 278 K/mm3 (150-400); RDW Coefficient Variation 13.3 % (11.7-14.2); Red Blood Cell Count 3.79 M/mm3 (3.80-5.20); White Blood Cell Count 5.28 K/mm3 (4.00-11.30)
[2018-05-21 05:55] LABS: Alanine Aminotransfer (ALT/SGP 21 U/L (12-78); Albumin, Blood 2.2 g/dL (3.4-5.0); Albumin/Globulin Ratio 0.7 (0.8-1.8); Alk Phos 60 U/L (50-136); Anion Gap 7 mmol/L (6-16); Aspartate Aminotrans (AST/SGOT 14 U/L (12-37); Bilirubin, Total 0.4 mg/dL (0.1-1.0); Blood Urea Nitrogen 13 mg/dL (8-24); Bun/Creatinine Ratio 24.4 (12.0-20.0); CO2, Blood 24 mmol/L (21-32); Calcium, Blood 8.2 mg/dL (8.5-10.1); Chloride, Blood 100 mmol/L (98-108); Creatinine, Blood 0.53 mg/dL (0.40-1.00); Globulin, Blood 3.3 g/dL (2.2-4.0); Glomerular Filtration Rate >60 (60-); Glucose, Blood 107 mg/dL (70-99); Potassium, Blood 4.2 mmol/L (3.5-5.5); Sodium, Blood 131 mmol/L (136-145); Total Protein, Blood 5.5 g/dL (6.4-8.2)
--- NOTE | 2018-05-21 06:08 | NUR ---
05/21/18 0550 REPOSITIONED TO OTHER SIDE AFTER CHANGING BRIEF OF URINE INCONTINENCE. RASH TO SACRAL AND JOSÉ- AREA CLEANSED AND SKIN BARRIOR POWDER APPLIED. PT WANTING TO GO BACK TO SLEEP. NO C/O PAIN OR OTHER S/S. FAMILY AT BEDSIDE.
--- NOTE | 2018-05-21 19:19 | NUR ---
SHIFT SUMMARY: NO ACUTE CHANGES TO REPORT THIS SHIFT. PT HX DEMENTIA; A & O x2; ORIENTED TO SELF AND FAMILY. PT UNCOOPERATIVE WITH CARE PROVIDED BY STAFF; COMPLIANT/COOPERATIVE WITH FAMILY CARE. PT UP c 1 ASSIST c FWW & GAIT BELT. NO C/O PAIN THIS SHIFT. IV ABX CONTINUING. REPORT GIVEN TO ONCOMING RN.
--- NOTE | 2018-05-22 04:45 | NUR ---
*SHIFT SUMMARY* PATIENT IS ALERT AND ORIENTED TO SELF AND FAMILY. PATIENT HAD JUST WENT FOR A WALK IN THE [place]ALLS WITH FAMILY AT BEGINING OF SHIFT AND WANTED TO TAKE A NAP. PATIENT ON ROOM AIR. NO COMPLAINTS OF PAIN. PT SLEPT MOST OF THE NIGHT. PT DID GET OUT OF BED AND WALKED TO [place] AND REQUESTED FOOD. PATIENT REDIRECTED BACK TO BED AND WAS PROVIDED A SNACK. BED ALARM SET. PATIENT FELL BACK ASLEEP AND HAS NOT ATTEMPTED TO GET OUT OF BED SINCE. CALL LIGHT WITHIN REACH, BED LOWERED AND LOCKED WITH ALARM ON. VITALS STABLE.
[2018-05-22 04:54] LABS: BASOPHILS ABSOLUTE AUTO 0.02 K/mm3 (0.00-0.23); BASOPHILS PERCENT AUTO 0 % (0-2); EOSINOPHILS ABSOLUTE AUTO 0.07 K/mm3 (0.00-0.68); EOSINOPHILS PERCENT AUTO 1 % (0-6); Hematocrit 35.3 % (33.0-51.0); Hemoglobin 12.1 g/dL (11.5-16.0); IMMATURE GRAN ABSOLUTE AUTO 0.16 K/mm3 (0.00-0.10); IMMATURE GRAN PERCENT AUTO 2 % (0-1); LYMPHOCYTES ABSOLUTE AUTO 1.79 K/mm3 (0.84-5.20); LYMPHOCYTES PERCENT AUTO 24 % (21-46); MONOCYTES ABSOLUTE AUTO 0.94 K/mm3 (0.16-1.47); MONOCYTES PERCENT AUTO 13 % (4-13); Mean Corpuscular HGB Conc 34.3 g/dL (31.5-36.5); Mean Corpuscular Volume 87 fL (80-100); Mean Platelet Volume 10.3 fL (9.1-12.4); NEUTROPHILS ABSOLUTE AUTO 4.54 K/mm3 (1.96-9.15); NEUTROPHILS PERCENT AUTO 60 % (41-73); Platelet Count 351 K/mm3 (150-400); RDW Coefficient Variation 13.2 % (11.7-14.2); RDW Standard Deviation 42.1 fL (35.1-46.3); Red Blood Cell Count 4.04 M/mm3 (3.80-5.20); White Blood Cell Count 7.52 K/mm3 (4.00-11.30)
[2018-05-22 05:20] LABS: Alanine Aminotransfer (ALT/SGP 24 U/L (12-78); Albumin, Blood 2.5 g/dL (3.4-5.0); Albumin/Globulin Ratio 0.8 (0.8-1.8); Alk Phos 64 U/L (50-136); Anion Gap 10 mmol/L (6-16); Aspartate Aminotrans (AST/SGOT 24 U/L (12-37); Bilirubin, Total 0.3 mg/dL (0.1-1.0); Blood Urea Nitrogen 12 mg/dL (8-24); Bun/Creatinine Ratio 20.7 (12.0-20.0); CO2, Blood 23 mmol/L (21-32); Calcium, Blood 8.6 mg/dL (8.5-10.1); Chloride, Blood 100 mmol/L (98-108); Creatinine, Blood 0.58 mg/dL (0.40-1.00); Globulin, Blood 3.3 g/dL (2.2-4.0); Glomerular Filtration Rate >60 (60-); Glucose, Blood 78 mg/dL (70-99); Potassium, Blood 4.3 mmol/L (3.5-5.5); Sodium, Blood 133 mmol/L (136-145); Total Protein, Blood 5.8 g/dL (6.4-8.2)
--- NOTE | 2018-05-22 16:19 | NUR ---
PT IS A/OX3, PLEASANT AND COOPERATIVE, THE PT IS UP WITH MINIMAL ASSIST TO THE CHAIR AND THE BSC, THE PT DENIED ANY PAIN T/O THE SHIFT, THE PT HAS POOR APPETITE AND AT ONLY SMALL PORTIONS OF HER MEALS T/O THE DAY, THE PTS DAUGHTER ASSISTED THE PT TODAY UP INTO THE CHAIR AND ALSO ASSISTED HER WITH HER LUNCH, THE PT APPEARS TO BE BREATHING EASILY ON RA AT THIS TIME, CALL LIGHT IN REACH, WILL CONTINUE TO MONITOR AND ASSESS FOR CHANGES
[2018-05-23 04:55] LABS: BASOPHILS ABSOLUTE AUTO 0.04 K/mm3 (0.00-0.23); BASOPHILS PERCENT AUTO 1 % (0-2); EOSINOPHILS ABSOLUTE AUTO 0.07 K/mm3 (0.00-0.68); EOSINOPHILS PERCENT AUTO 1 % (0-6); Hematocrit 35.9 % (33.0-51.0); Hemoglobin 11.9 g/dL (11.5-16.0); IMMATURE GRAN PERCENT AUTO 2 % (0-1); LYMPHOCYTES ABSOLUTE AUTO 1.68 K/mm3 (0.84-5.20); LYMPHOCYTES PERCENT AUTO 20 % (21-46); MONOCYTES ABSOLUTE AUTO 1.15 K/mm3 (0.16-1.47); MONOCYTES PERCENT AUTO 14 % (4-13); Mean Corpuscular HGB Conc 33.1 g/dL (31.5-36.5); Mean Platelet Volume 10.3 fL (9.1-12.4); NEUTROPHILS ABSOLUTE AUTO 5.32 K/mm3 (1.96-9.15); NEUTROPHILS PERCENT AUTO 63 % (41-73); Platelet Count 363 K/mm3 (150-400); RDW Coefficient Variation 13.4 % (11.7-14.2); RDW Standard Deviation 44.5 fL (35.1-46.3); Red Blood Cell Count 3.97 M/mm3 (3.80-5.20); White Blood Cell Count 8.46 K/mm3 (4.00-11.30)
[2018-05-23 05:05] LABS: Mean Corpuscular Volume 90 fL (80-100)
[2018-05-23 05:22] LABS: Alanine Aminotransfer (ALT/SGP 22 U/L (12-78); Albumin, Blood 2.5 g/dL (3.4-5.0); Albumin/Globulin Ratio 0.8 (0.8-1.8); Alk Phos 68 U/L (50-136); Anion Gap 9 mmol/L (6-16); Aspartate Aminotrans (AST/SGOT 19 U/L (12-37); Bilirubin, Total 0.4 mg/dL (0.1-1.0); Blood Urea Nitrogen 15 mg/dL (8-24); Bun/Creatinine Ratio 27.4 (12.0-20.0); CO2, Blood 23 mmol/L (21-32); Calcium, Blood 8.5 mg/dL (8.5-10.1); Chloride, Blood 102 mmol/L (98-108); Creatinine, Blood 0.55 mg/dL (0.40-1.00); Globulin, Blood 3.1 g/dL (2.2-4.0); Glomerular Filtration Rate >60 (60-); Glucose, Blood 84 mg/dL (70-99); Potassium, Blood 4.1 mmol/L (3.5-5.5); Sodium, Blood 134 mmol/L (136-145); Total Protein, Blood 5.6 g/dL (6.4-8.2)
[2018-05-23] MEDS ORDERED: GUAI600T33 PO (11:28)
[2018-05-23] MEDS ORDERED: LEVOFLOXACIN250 MG PO (11:30)
--- NOTE | 2018-05-23 12:54 | NUR ---
PT DISCHARGED PT AND FAMILY VEBALIZED UNDERSTANDING OF THE DISCHARGE INSTRUCTIONS, THE PTS PERSCRIPTIONS WERE FAXED TO [facility] REQUEST[facility], THE PT APPEARED TO BE BREATHING EASILY ON RA, THE PT WAS TRANSFERED VIA WHEELCHAIR ACCOMPANIED BY HER FAMILY AND THE WRAPPING MACHINE TENDER
== END 2018-05-23 12:02 | disposition home or self-care (01) | DRG 871 ==
LOC: ER 12:04 → ERHOLD 17:33 → MEDS 17:33 → ENPENDDIS 05-23 10:29 → MEDS 05-23 12:02
PROVIDERS: Emergency Medicine; Internal Medicine; ADMIT Family Medicine
DX: A41.9 Sepsis, unspecified organism (principal); J18.9 Pneumonia, unspecified organism; G92 Toxic encephalopathy; N39.0 Urinary tract infection, site not specified; E46 Unspecified protein-calorie malnutrition; C34.90 Malignant neoplasm of unspecified part of unspecified bronchus or lung; N13.30 Unspecified hydronephrosis; E87.1 Hypo-osmolality and hyponatremia; Z68.1 Body mass index [BMI] 19.9 or less, adult; B96.1 Klebsiella pneumoniae [K. pneumoniae] as the cause of diseases classified elsewhere; E87.6 Hypokalemia; J10.1 Influenza due to other identified influenza virus with other respiratory manifestations; K57.30 Diverticulosis of large intestine without perforation or abscess without bleeding; F03.90 Unspecified dementia, unspecified severity, without behavioral disturbance, psychotic disturbance, mood disturbance, and anxiety; E78.5 Hyperlipidemia, unspecified; E87.8 Other disorders of electrolyte and fluid balance, not elsewhere classified; E86.0 Dehydration; R19.7 Diarrhea, unspecified; F17.200 Nicotine dependence, unspecified, uncomplicated; Z66 Do not resuscitate; J44.9 Chronic obstructive pulmonary disease, unspecified; R07.9 Chest pain, unspecified; Z92.3 Personal history of irradiation; Z92.21 Personal history of antineoplastic chemotherapy; Z88.5 Allergy status to narcotic agent; Z88.0 Allergy status to penicillin; Z79.899 Other long term (current) drug therapy
CPT/HCPCS: 36415; 71045; 71046; 71260; 74177; 80048; 80053; 80202; 81001; 83605; 83735; 84100; 84145; 84484; 85025; 85027; 85610; 85730; 87040; 87486; 87581; 87633; 87798; 93005; 93010; 94760; 97116; 97162; 97166; 97530; 97535; 99285-25; A9270-GY; J0692; J1650; J1956; J3370; J3480; J7050; J7120; Q9967